=== PATIENT | female | born 1960 | race Caucasian/White ===

== ENCOUNTER → 2017-06-03 | Day surgery (SDC) | payer BC ==
[~2017-06-03] VITALS: Ht 167.6 cm; Wt 90.2 kg
[~2017-06-03] MED LIST: AMBIEN10 MG PO; BREO ELLIPTA 21 EACH INH; FLAGYL TOP; GLUCOPHAGE500 MG PO; HUMALOG100 UNIT/3 SUB-Q; LANTUS100 UNIT/1 SUB-Q; LEVOTHROID (SY25 MCG PO; LORCET HD 10-31 EACH PO; MELATONIN10 MG PO; NEXIUM40 MG PO; PROAIR HFA8.5 GM INH; SINGULAIR10 MG PO; WELLBUTRIN XL150 M1 PO; XALATAN2.5 ML OPHTH
--- NOTE | ~2017-06-03 | OR ---
PATIENT'S NAME: CLAUDIA LA [facility] AGE: 56 Y [address] ROOM: [place] [id number] LOCATION: [facility] [place] ADMIT DATE: 06/03/2017 OR/Procedure Report DISCHARGE DATE: FAMILY PHYSICIAN: Kerry Agee PA-C ATTENDING PHYSICIAN: Sneha Waldrop SURGEON: Sneha Waldrop MD DICE MANAGER: DATE OF PROCEDURE: 06/03/2017 PREOPERATIVE DIAGNOSES: Suspect temporal arteritis, history of right-sided temporal headaches and elevated sedimentation rate. POSTOPERATIVE DIAGNOSES: Suspect temporal arteritis, history of right-sided temporal headaches and elevated sedimentation rate. ANESTHESIA: General. SURGERY: Includes right temporal artery biopsy. HISTORY: Claudia La is a 56-year-old female with a history of right temporal headaches. Recent blood work suggested elevated sed rate per Dr. Kerry Agee in [place], [place]. The patient is referred for temporal artery biopsy. The patient understood the risks and benefits and wished to proceed. DESCRIPTION OF PROCEDURE: The patient was brought to the operating room, placed in a supine position, and underwent local anesthesia with sedation. The area of the right episcopal was shaved and Doppler was used to identify the temporal artery. This was marked out and infiltrated with 1 mL of 1% lidocaine with 1:100,000 epinephrine to the area. The area was prepped and draped in a normal sterile fashion. The incision was carried down through the subcutaneous tissues identifying the temporal artery. A 1 cm section was taken and the clamped ends of the temporal artery were closed with 3-0 silk suture. No significant bleeding was noted. The wound was closed with interrupted deep Vicryl sutures and the skin approximated with nylon. The patient tolerated the procedure well and was transferred to the recovery room in stable condition. SNEHA WALDROP MD DGO/modl PATIENT'S NAME: CLAUDIA LA [facility] AGE: 56 Y [address] ROOM: [place] [id number] LOCATION: [facility] [place] ADMIT DATE: 06/03/2017 OR/Procedure Report DISCHARGE DATE: FAMILY PHYSICIAN: Kerry Agee PA-C ATTENDING PHYSICIAN: Sneha Waldrop /[id number] d: t: 06/03/17 1216, OPERATIVE SUMMARY
== END | disposition disaster alternative care site (69) ==
LOC: GPOC 06-02 15:00 → GSDC 06:01
PROC: 03BS0ZX Excision of Right Temporal Artery, Open Approach, Diagnostic (ICD-10-PCS; principal; 2017-06-03)
DX: R51 Headache (principal); R70.0 Elevated erythrocyte sedimentation rate; E11.9 Type 2 diabetes mellitus without complications; M19.90 Unspecified osteoarthritis, unspecified site; Z90.49 Acquired absence of other specified parts of digestive tract; Z90.710 Acquired absence of both cervix and uterus; Z98.890 Other specified postprocedural states
CPT/HCPCS: J2001; J2405; J7030